=== PATIENT | male | born 1980 | race Two or more races ===

== ENCOUNTER 2025-01-17 17:59 | Emergency (ER) | payer MEDICAID, SELFPAY ==
[2025-01-17 18:14] VITALS: BP 143/86; PULSE 89; RESP 18; TEMP 37; O2SAT 97; BMI 31.0
--- NOTE | 2025-01-17 18:49 | XR_ITS ---
Examination: PA lateral chest 2 views TECHNIQUE: Upright PA lateral chest 2 views. Date and time: January 17, 2025, 1910 hours INDICATIONS: Coughing one week FINDINGS: Normal heart size Mild pneumonia in the lingular segment left upper lobe Right lung clear IMPRESSION: Pneumonia lingular segment left upper lobe
--- NOTE | 2025-01-17 19:29 | EDNOTE_ITS ---
ED SOB =RME/HPI General Chief Complaint: Shortness of Breath/Dyspnea Stated Complaint: CHEST CONGESTION W/ SOB; SEEN PRIMARY SAT W/ ABX Time Seen by Provider: 01/17/25 18:49 Arrival date/time: 01/17/25 17:59 44M with no significant PMH presents to ED with 1 week of cough and SOB. Patient was seen by PCP and given Z-margarita, Tessalon Perles, and albuterol w/o relief. Limitations: no limitations Related Data Previous Rx's ?Medication ?Instructions ?Recorded meloxicam 7.5 mg tablet 7.5 mg PO QDAY #10 tabs 10/18 07/11 amoxicillin 875 mg tablet 875 mg PO TID 5 days #15 tab s 01/17/25 Allergies Allergy/AdvReac Type Severity Reaction Status Date / Time No Known Allergies Allergy Verified 01/17/25 18:03 Review of Systems Review of Systems Systems Reviewed: All systems reviewed, normal except as documented Constitutional Constitutional: Reports system reviewed and no additional complaints, except as documented, Denies fever(s) and Denies headache(s) ENT Ears, Nose, Mouth, and Throat: Denies disequilibrium and Denies headache(s) Cardiovascular Cardiovascular: Reports system reviewed and no additional complaints, except as documented, Denies chest pain and Reports dyspnea Respiratory Respiratory: Reports system reviewed and no additional complaints, except as documented, Reports as per HPI, Reports cough and Reports dyspnea Gastrointestinal Gastrointestinal: Reports system reviewed and no additional complaints, except as documented, Denies abdominal pain, Denies nausea and Denies vomiting Neurologic Neurologic: Reports system reviewed and no additional complaints, except as documented, Denies confusion, Denies disequilibrium and Denies headache(s) Psychiatric Psychiatric: Denies confusion Past Medical History Past Medical History NEUROLOGIC: Negative Cerebrovascular Accident or Alzheimer's Disease CARDIAC: Positive Cardiac Disorders and Hypertension; Negative Myocardial Infarction, Angina or Congestive Heart Failure RESPIRATORY: Negative Chronic Obstructive Pulmonary Disease (COPD) or Emphysema GASTROINTESTINAL: Negative Liver Cancer or Pancreatic Cancer GENITOURINARY: Negative Renal Disease MUSCULOSKELETAL: Negative Muscular Dystrophy or Bone Cancer ENDOCRINE: Negative Endocrine Disorders, Diabetes Mellitus Type 1 or Diabetes Mellitus Type 2 HEMATOLOGIC: Negative Blood Disorders OTHER HISTORY: Negative Down Syndrome or Developmental Delay Family History FAMILY HISTORY: Negative Family Respiratory Disorders, Family Cardiac Disorders or Family Gastrointestinal Problems Social History SMOKING STATUS: Never smoker ED Exam General Limitations: Present no limitations General appearance: Present alert and in no apparent distress Head Head exam: Present atraumatic Eye Eye exam: Present normal appearance, PERRL and EOMI ENT ENT exam: Present normal exam, normal oropharynx and mucous membranes moist Neck Neck exam: Present normal inspection, full ROM and trachea midline Chest Chest inspection: Present normal inspection and symmetric chest wall rise Respiratory Respiratory exam: Present normal lung sounds bilaterally Cardiovascular Cardiovascular exam: Present regular rate, normal rhythm and normal heart sounds Abdominal Exam Abdominal exam: Present soft and normal bowel sounds Extremities Exam Extremities exam: Present normal inspection and full ROM Back Exam Back exam: Present normal inspection and full ROM Neurological Exam Neurological exam: Present alert, oriented X3 and CN II-XII intact Psychiatric Psychiatric exam: Present normal affect and normal mood Skin Skin exam: Present warm, dry, intact and normal color Course Quality Measures none Orders Category Date Time Status XR chest 2V Stat Exams 01/17/25 18:49 Completed Amoxicillin Cap [Amoxil Cap] Med 01/17/25 21:35 Discontinued 1,000 mg PO X1 ONE Vital Signs Vital signs: Vital Signs Temperature 98.6 F 01/17/25 18:14 Pulse Rate 89 01/17/25 18:14 Respiratory Rate 18 01/17/25 18:14 Blood Pressure 143/86 H 01/17/25 18:14 Pulse Oximetry (%) 97 01/17/25 18:14 Oxygen Delivery Method Room Air 01/17/25 18:14 O2 at 97% on RA and WNLs Shortness of Breath / Dyspnea MDM Narrative MDM Narrative:: 44M with no significant PMH presents to ED with 1 week of cough and SOB. Patient was seen by PCP and given Z-margarita, Tessalon Perles, and albuterol w/o relief. Physical exam reveals clear lungs and normal WOB. Patient is afebrile, calm, and alert. CXR PNA. Will add amoxicillin to regimen. Patient data External records reviewed:: [facility] previous records Clinical information provided by:: patient Social determinants that could affect healthcare access:: none Patient has the following chronic illnesses:: none How is presenting disease/condition affected by chronic disease/condition?: no chronic disease Evaluation data The following diagnostics were reviewed and interpreted by me:: radiology exam(s) Lab and/or radiology exams considered but not ordered:: ordered Interpretation Summary: above Medications / Prescriptions Medications or Prescriptions considered but not ordered:: ordered Medication administrations:: Medication Administration History Discontinued Medications Amoxicillin (Amoxicillin 250 Mg Capsule) 1,000 mg PO X1 ONE Stop: 01/17/25 21:36 Last Admin: 01/17/25 21:44 Dose: 1,000 mg Documented By: OA above Consultations Consultation(s) initiated? (list below): No Diagnosis Shortness of Breath Differential Diagnosis: acute exacerbation of chronic obstru ctive airways disease, congestive heart failure, community acquired pneumonia, asthma with exacerbation and pulmonary embolism Most likely diagnosis given after review of the tests above:: CAP Admission Indicated Admission indicated?: not indicated Admission Request Was there a request for admission?: No Disposition Plan Disposition Plan: Discharge Discharge Attestation Discharge Attestation: The patient and all family members were given an opportunity to ask questions and understood the discharge instructions. Discharge instructions specifically effects, indications for sooner follow up or return to the emergency department, and the expected course of current diagnosis. Patient condition: Stable Discharge Plan Plan Patient Disposition: HOME (Self Care) Discharge Disposition comment: Stable Prescriptions/Referrals Prescriptions/Med Rec: New amoxicillin 875 mg tablet 875 mg PO TID 5 Days Qty: 15 0RF No Action meloxicam 7.5 mg tablet 7.5 mg PO QDAY Qty: 10 0RF Referrals: No Primary/Family,Physician [Primary Care Provider] - In 1 week Problem List Clinical Impression: Community acquired pneumonia Patient/Caregiver Discharge Instructions Education Materials: ED Pneumonia (Adult) Additional Instructions: Please follow-up with PCP within 24-48 hours and return immediately if symptoms worsen. Finish other ABX and take new one as well. Print Language: Maori Stand Alone Forms: Patient Portal Info Letter MARTY/FILIBERTO Supervising Physician MARTY/FILIBERTO Supervising Physician: Dr. Riddle
[2025-01-17] MEDS: AMOXICILLIN 250 MG CAPSULE 1000 MG PO (21:44)
== END 2025-01-17 21:48 | disposition home or self-care (01) ==
PROVIDERS: Emergency Provider Emergency Medicine
DX: J18.9 Pneumonia, unspecified organism (principal)
CPT/HCPCS: 71046; 99283; A9270